=== PATIENT | female | born 1935 | race Caucasian/White ===

== ENCOUNTER 2022-05-16 17:51 | Inpatient (IN) | payer MEDICARE, MEDICAID ==
[~2022-05-16] VITALS: Ht 167.6 cm; Wt 83.5 kg
[~2022-05-16 17:51] MED LIST: ASPI-1497 PO; CILO100T PO; HYDR25TA PO; LEVO25TA7 PO; MECL-159 PO; PANT40TA51 PO; PIOG45TA5 PO; PREG150C PO
[2022-05-17] VITALS (7 sets, daily range): BP systolic 123–177; BP diastolic 45–83
[2022-05-17 01:48] LABS: BASOPHILS % 0.8 % (0.0-2.0); EOSINOPHILS % 3.6 % (0.0-5.0); LYMPHOCYTES % 24.8 % (20.0-50.0); MEAN CORPUSCULAR HEMOGLOBIN 20.6 pg (28.0-32.0); MEAN CORPUSCULAR VOLUME 69.2 fL (81.0-99.0); MEAN PLATELET VOLUME 9.3 fl (7.4-10.4); MONOCYTES % 10.4 % (2.0-8.0); NEUTROPHILS % 60.4 % (40.0-76.0); PLATELET 224 x1000/uL (130-400); RED BLOOD CELL COUNT 2.22 mill/uL (4.2-5.4); RED CELL DISTRIBUTION WIDTH 18.9 % (11.6-14.6)
[2022-05-17 01:53] LABS: HEMATOCRIT. 15.3 % (36.0-48.0); HEMOGLOBIN. 4.6 g/dL (12.0-16.0)
[2022-05-17 01:57] LABS: CHLORIDE 113 mEq/L (98-107)
[2022-05-17 01:59] LABS: INR 1.1; PARTIAL THROMBOPLASTIN TIME 25.8 sec (23.4-31.0)
[2022-05-17 02:08] LABS: PLATELET ESTIMATE NORMAL
[2022-05-17] MEDS ORDERED: CALCIUM CHLORIDE 1GM/10ML SYR IV ONE (02:45)
[2022-05-17 03:25] LABS: CLARITY URINE CLEAR (CLEAR); COLOR URINE YELLOW (YELLOW); KETONES URINE NEGATIVE (NEGATIVE); LEUKOCYTE ESTERASE URINE 2+ (NEGATIVE); NITRITE URINE NEGATIVE (NEGATIVE); OCCULT BLOOD URINE NEGATIVE (NEGATIVE); PROTEIN URINE NEGATIVE (NEGATIVE); SPECIFIC GRAVITY URINE 1.012 (1.005-1.030); UROBILINOGEN URINE 0.2 E.U./dL (0.2-1.0)
[2022-05-17] MEDS ORDERED: CEFTRIAXONE 1 G PREMIX 50 ML IV SCH (08:00)
[2022-05-17] MEDS ORDERED: ACETAMINOPHEN 325MG TABLET PO PRN ×2 (08:00)
[2022-05-17] MEDS ORDERED: HYDROCODONE/ACETAMINOPHEN 5/325MG TABLET PO PRN (08:00)
[2022-05-17] MEDS ORDERED: IPRATROPIUM/ALBUTEROL 0.5-3(2.5)MG/3ML NEB NEB PRN (08:00)
[2022-05-17] MEDS ORDERED: CLONIDINE 0.1MG TABLET PO PRN (08:00)
[2022-05-17] MEDS ORDERED: ONDANSETRON HCL 4MG/2ML INJ IV PRN (08:00)
[2022-05-17] MEDS ORDERED: GUAIFENESIN 200MG/10ML SUGAR FREE UDC PO PRN (08:00)
[2022-05-17] MEDS ORDERED: MAGNESIUM/ALUMINUM HYDROXIDE/SIMETHICONE 30ML UDC PO PRN (09:00)
[2022-05-17] MEDS ORDERED: HEPARIN 1000 UNITS/ML 10ML ONE (11:01)
[2022-05-17] MEDS ORDERED: NALOXONE HCL 0.4MG/ML VIAL IV PRN (12:00)
[2022-05-17 16:02] LABS: BASOPHILS % 0.8 % (0.0-2.0); EOSINOPHILS % 1.3 % (0.0-5.0); HEMATOCRIT. 24.3 % (36.0-48.0); HEMOGLOBIN. 7.4 g/dL (12.0-16.0); LYMPHOCYTES % 12.1 % (20.0-50.0); MEAN CORPUSCULAR HEMOGLOBIN 24.1 pg (28.0-32.0); MONOCYTES % 5.9 % (2.0-8.0); NEUTROPHILS % 79.9 % (40.0-76.0); PLATELET 169 x1000/uL (130-400); RED BLOOD CELL COUNT 3.07 mill/uL (4.2-5.4); RED CELL DISTRIBUTION WIDTH 23.3 % (11.6-14.6)
[2022-05-17] MEDS: CEFTRIAXONE 1,000 MG in DEXTROSE 5% WATER 50 ML IV SCH (16:05)
[2022-05-17 16:26] LABS: CHLORIDE 116 mEq/L (98-107)
[2022-05-17 16:38] LABS: FERRITIN 7 ng/mL (10-291)
[2022-05-17 16:44] LABS: PHOSPHORUS 4.9 mg/dL (2.5-4.9); T4 FREE 1.28 ng/dL (0.76-1.46); TOTAL IRON BINDING CAPACITY 464 ug/dL (250-450)
[2022-05-17 16:49] LABS: HEPATITIS B SURFACE ANTIGEN NEGATIVE
[2022-05-18] VITALS (15 sets, daily range): BP systolic 109–148; BP diastolic 42–68
[2022-05-18 06:24] LABS: BASOPHILS % 0.7 % (0.0-2.0); EOSINOPHILS % 3.9 % (0.0-5.0); LYMPHOCYTES % 20.9 % (20.0-50.0); MEAN CORPUSCULAR HEMOGLOBIN 23.1 pg (28.0-32.0); MEAN PLATELET VOLUME 9.6 fl (7.4-10.4); MONOCYTES % 11.3 % (2.0-8.0); NEUTROPHILS % 63.2 % (40.0-76.0); PLATELET 181 x1000/uL (130-400); RED BLOOD CELL COUNT 2.95 mill/uL (4.2-5.4); RED CELL DISTRIBUTION WIDTH 24.3 % (11.6-14.6)
[2022-05-18 06:41] LABS: MEAN CORPUSCULAR VOLUME 74.4 fL (81.0-99.0)
[2022-05-18 06:43] LABS: HEMATOCRIT. 21.9 % (36.0-48.0); HEMOGLOBIN. 6.8 g/dL (12.0-16.0)
[2022-05-18 06:50] LABS: PHOSPHORUS 2.9 mg/dL (2.5-4.9)
[2022-05-18] MEDS: AMLODIPINE 2.5MG TABLET PO SCH (08:40)
[2022-05-18] MEDS ORDERED: DEXTROSE 50% WATER 50ML SYRINGE IV PRN (09:30)
[2022-05-18] MEDS ORDERED: CEFTRIAXONE 1,000 MG in DEXTROSE 5% WATER 50 ML IV SCH (10:00)
[2022-05-18] MEDS: LEVOTHYROXINE SODIUM 25MCG TABLET PO SCH (10:06)
[2022-05-18] MEDS: BLOOD SUGAR DIAGNOSTIC STRIP TEST SCH ×3 (12:15→21:00)
[2022-05-18] MEDS: INSULIN LISPRO 100 UNITS/ML SUBCUT SCH ×3 (12:15→22:06)
[2022-05-18] MEDS: CEFTRIAXONE 1,000 MG in DEXTROSE 5% WATER 50 ML IV SCH (13:35)
[2022-05-18 14:12] LABS: FOLIC ACID (FOLATE) SERUM >20 ng/mL ng/mL (>5.38)
[2022-05-18] MEDS: GABAPENTIN 100MG CAPSULE PO SCH ×2 (14:34→22:07)
[2022-05-19] VITALS (12 sets, daily range): BP systolic 120–163; BP diastolic 52–70
[2022-05-19 06:42] LABS: BASOPHILS % 0.8 % (0.0-2.0); EOSINOPHILS % 4.7 % (0.0-5.0); HEMATOCRIT. 26.4 % (36.0-48.0); HEMOGLOBIN. 8.4 g/dL (12.0-16.0); LYMPHOCYTES % 22.8 % (20.0-50.0); MEAN CORPUSCULAR HEMOGLOBIN 24.1 pg (28.0-32.0); MEAN CORPUSCULAR VOLUME 75.8 fL (81.0-99.0); MEAN PLATELET VOLUME 9.5 fl (7.4-10.4); MONOCYTES % 11.2 % (2.0-8.0); NEUTROPHILS % 60.5 % (40.0-76.0); PLATELET 176 x1000/uL (130-400); RED BLOOD CELL COUNT 3.48 mill/uL (4.2-5.4)
[2022-05-19] MEDS: GABAPENTIN 100MG CAPSULE PO SCH ×3 (06:47→22:00)
[2022-05-19] MEDS: BLOOD SUGAR DIAGNOSTIC STRIP TEST SCH ×4 (06:47→22:16)
[2022-05-19] MEDS: IRON SUCROSE COMPLEX 100 MG/5 ML ML IV SCH ×2 (06:47→23:42)
[2022-05-19] MEDS: LEVOTHYROXINE SODIUM 25MCG TABLET PO SCH (06:51)
[2022-05-19] MEDS: INSULIN LISPRO 100 UNITS/ML SUBCUT SCH ×4 (07:30→21:00)
[2022-05-19] MEDS: AMLODIPINE 2.5MG TABLET PO SCH (09:06)
[2022-05-19] MEDS: FERROUS SULFATE 325MG TABLET PO SCH (09:07)
[2022-05-19] MEDS: FUROSEMIDE 40MG/4ML VIAL IVP SCH (11:55)
[2022-05-19] MEDS: CEFTRIAXONE 1,000 MG in DEXTROSE 5% WATER 50 ML IV SCH (12:46)
[2022-05-19] MEDS: ENOXAPARIN 30MG/0.3ML SYR SUBCUT SCH (18:46)
[2022-05-20] VITALS (13 sets, daily range): BP systolic 128–159; BP diastolic 45–88
[2022-05-20 06:18] LABS: BASOPHILS % 0.9 % (0.0-2.0); EOSINOPHILS % 4.1 % (0.0-5.0); HEMATOCRIT. 26.3 % (36.0-48.0); HEMOGLOBIN. 8.2 g/dL (12.0-16.0); MEAN CORPUSCULAR HEMOGLOBIN 23.7 pg (28.0-32.0); MEAN CORPUSCULAR VOLUME 76.4 fL (81.0-99.0); MEAN PLATELET VOLUME 9.7 fl (7.4-10.4); MONOCYTES % 13.1 % (2.0-8.0); NEUTROPHILS % 61.9 % (40.0-76.0); PLATELET 175 x1000/uL (130-400); RED BLOOD CELL COUNT 3.44 mill/uL (4.2-5.4); RED CELL DISTRIBUTION WIDTH 24.8 % (11.6-14.6)
[2022-05-20] MEDS: LEVOTHYROXINE SODIUM 25MCG TABLET PO SCH (07:05)
[2022-05-20] MEDS: GABAPENTIN 100MG CAPSULE PO SCH ×3 (07:05→22:15)
[2022-05-20] MEDS: BLOOD SUGAR DIAGNOSTIC STRIP TEST SCH ×4 (07:05→22:12)
[2022-05-20] MEDS: INSULIN LISPRO 100 UNITS/ML SUBCUT SCH ×4 (08:00→22:13)
[2022-05-20] MEDS: AMLODIPINE 2.5MG TABLET PO SCH (09:00)
[2022-05-20] MEDS ORDERED: MAGNESIUM HYDROXIDE 400MG/5ML 30ML UDC PO PRN (11:30)
[2022-05-20] MEDS: SENNOSIDES/DOCUSATE SOD 8.6/50MG TABLET PO SCH ×2 (12:00→17:41)
[2022-05-20] MEDS: FUROSEMIDE 40MG/4ML VIAL IVP SCH (13:16)
[2022-05-20] MEDS: POLYETHYLENE GLYCOL 3350 (17GM) 1 DOSE PACK PO SCH (13:27)
[2022-05-20] MEDS: CEFTRIAXONE 1,000 MG in DEXTROSE 5% WATER 50 ML IV SCH (14:42)
[2022-05-20] MEDS: ENOXAPARIN 30MG/0.3ML SYR SUBCUT SCH (17:36)
[2022-05-21] VITALS (16 sets, daily range): BP systolic 128–162; BP diastolic 44–74
[2022-05-21] MEDS: IRON SUCROSE COMPLEX 100 MG/5 ML ML IV SCH ×2 (00:14→21:28)
[2022-05-21 06:36] LABS: BASOPHILS % 0.6 % (0.0-2.0); EOSINOPHILS % 4.8 % (0.0-5.0); HEMATOCRIT. 26.4 % (36.0-48.0); HEMOGLOBIN. 8.5 g/dL (12.0-16.0); LYMPHOCYTES % 17.7 % (20.0-50.0); MEAN CORPUSCULAR HEMOGLOBIN 24.4 pg (28.0-32.0); MEAN CORPUSCULAR VOLUME 75.8 fL (81.0-99.0); MEAN PLATELET VOLUME 9.7 fl (7.4-10.4); MONOCYTES % 10.1 % (2.0-8.0); NEUTROPHILS % 66.8 % (40.0-76.0); PLATELET 170 x1000/uL (130-400); RED BLOOD CELL COUNT 3.48 mill/uL (4.2-5.4); RED CELL DISTRIBUTION WIDTH 24.9 % (11.6-14.6)
[2022-05-21] MEDS: GABAPENTIN 100MG CAPSULE PO SCH ×3 (07:01→21:28)
[2022-05-21] MEDS: LEVOTHYROXINE SODIUM 25MCG TABLET PO SCH (07:01)
[2022-05-21] MEDS: BLOOD SUGAR DIAGNOSTIC STRIP TEST SCH ×4 (07:01→21:27)
[2022-05-21 07:51] LABS: PHOSPHORUS 3.7 mg/dL (2.5-4.9)
[2022-05-21] MEDS: INSULIN LISPRO 100 UNITS/ML SUBCUT SCH ×4 (08:00→21:00)
[2022-05-21] MEDS: SENNOSIDES/DOCUSATE SOD 8.6/50MG TABLET PO SCH ×2 (08:19→17:55)
[2022-05-21] MEDS: FERROUS SULFATE 325MG TABLET PO SCH (08:19)
[2022-05-21] MEDS: AMLODIPINE 2.5MG TABLET PO SCH (08:20)
[2022-05-21] MEDS: POLYETHYLENE GLYCOL 3350 (17GM) 1 DOSE PACK PO SCH (08:20)
[2022-05-21] MEDS: FUROSEMIDE 40MG/4ML VIAL IVP SCH (08:20)
[2022-05-21 09:07] LABS: ALBUMIN 3.3 g/dL (2.9-4.4); ALPHA-1-GLOBULIN 0.3 g/dL (0.0-0.4); ALPHA-2-GLOBULIN 0.9 g/dL (0.4-1.0); BETA GLOBULIN 1.1 g/dL (0.7-1.3); GAMMA GLOBULINS 1.1 g/dL (0.4-1.8); GLOBULIN TOTAL 3.4 g/dL (2.2-3.9); M-SPIKE Not Observed g/dL (Not Observed); TOTAL PROTEIN SERUM 6.7 g/dL (6.0-8.5)
[2022-05-21] MEDS ORDERED: SORBITOL 70% SOLN 30ML PO PRN (10:00)
[2022-05-21] MEDS: CEFTRIAXONE 1,000 MG in DEXTROSE 5% WATER 50 ML IV SCH (12:43)
[2022-05-21] MEDS: ENOXAPARIN 30MG/0.3ML SYR SUBCUT SCH (17:55)
[2022-05-21 18:46] LABS: VITAMIN B12 SERUM > 2000 pg/mL (211-911)
[2022-05-22] VITALS (20 sets, daily range): BP systolic 136–156; BP diastolic 28–71
[2022-05-22 07:07] LABS: BASOPHILS % 0.6 % (0.0-2.0); HEMATOCRIT. 28.5 % (36.0-48.0); HEMOGLOBIN. 8.8 g/dL (12.0-16.0); MEAN CORPUSCULAR VOLUME 77.2 fL (81.0-99.0); MEAN PLATELET VOLUME 9.6 fl (7.4-10.4); MONOCYTES % 9.3 % (2.0-8.0); NEUTROPHILS % 67.1 % (40.0-76.0); PLATELET 157 x1000/uL (130-400); RED BLOOD CELL COUNT 3.69 mill/uL (4.2-5.4); RED CELL DISTRIBUTION WIDTH 25.8 % (11.6-14.6)
[2022-05-22] MEDS: INSULIN LISPRO 100 UNITS/ML SUBCUT SCH ×4 (07:14→21:00)
[2022-05-22] MEDS: BLOOD SUGAR DIAGNOSTIC STRIP TEST SCH ×4 (07:14→21:25)
[2022-05-22] MEDS: GABAPENTIN 100MG CAPSULE PO SCH ×3 (07:16→21:26)
[2022-05-22] MEDS: LEVOTHYROXINE SODIUM 25MCG TABLET PO SCH (07:16)
[2022-05-22] MEDS: SENNOSIDES/DOCUSATE SOD 8.6/50MG TABLET PO SCH ×2 (09:26→16:56)
[2022-05-22] MEDS: FUROSEMIDE 40MG/4ML VIAL IVP SCH (09:26)
[2022-05-22] MEDS: AMLODIPINE 2.5MG TABLET PO SCH (09:27)
[2022-05-22] MEDS: POLYETHYLENE GLYCOL 3350 (17GM) 1 DOSE PACK PO SCH (09:27)
[2022-05-22] MEDS: CEFTRIAXONE 1,000 MG in DEXTROSE 5% WATER 50 ML IV SCH (12:48)
[2022-05-22 17:11] LABS: ANA IFA Negative (.)
[2022-05-22] MEDS: ENOXAPARIN 30MG/0.3ML SYR SUBCUT SCH (17:59)
[2022-05-22] MEDS: IRON SUCROSE COMPLEX 100 MG/5 ML ML IV SCH (21:26)
[2022-05-23] VITALS (12 sets, daily range): BP systolic 125–145; BP diastolic 52–81
[2022-05-23 06:35] LABS: BASOPHILS % 0.8 % (0.0-2.0); EOSINOPHILS % 6.2 % (0.0-5.0); HEMATOCRIT. 28.1 % (36.0-48.0); HEMOGLOBIN. 9.1 g/dL (12.0-16.0); MEAN CORPUSCULAR HEMOGLOBIN 24.6 pg (28.0-32.0); MEAN CORPUSCULAR VOLUME 76.3 fL (81.0-99.0); MEAN PLATELET VOLUME 9.6 fl (7.4-10.4); MONOCYTES % 9.2 % (2.0-8.0); NEUTROPHILS % 63.8 % (40.0-76.0); PLATELET 166 x1000/uL (130-400); RED BLOOD CELL COUNT 3.68 mill/uL (4.2-5.4)
[2022-05-23] MEDS: GABAPENTIN 100MG CAPSULE PO SCH (07:07)
[2022-05-23] MEDS: LEVOTHYROXINE SODIUM 25MCG TABLET PO SCH (07:08)
[2022-05-23] MEDS: BLOOD SUGAR DIAGNOSTIC STRIP TEST SCH ×2 (07:08→12:30)
[2022-05-23] MEDS: INSULIN LISPRO 100 UNITS/ML SUBCUT SCH ×2 (08:14→13:00)
[2022-05-23] MEDS: POLYETHYLENE GLYCOL 3350 (17GM) 1 DOSE PACK PO SCH (08:50)
[2022-05-23] MEDS: FERROUS SULFATE 325MG TABLET PO SCH (08:50)
[2022-05-23] MEDS: SENNOSIDES/DOCUSATE SOD 8.6/50MG TABLET PO SCH (08:50)
[2022-05-23] MEDS: AMLODIPINE 2.5MG TABLET PO SCH (08:51)
[2022-05-23] MEDS ORDERED: FERR-63 PO (12:48)
[2022-05-23] MEDS ORDERED: POLY17PO3 PO (12:48)
[2022-05-23] MEDS ORDERED: SENN1TAB35 PO (12:48)
== END 2022-05-23 14:05 | disposition home health service (06) | DRG 683 ==
LOC: ER 17:51 → EDBEDREQTM 05-17 03:04 → EDBEDREQ 05-17 03:04 → SUPCPDRO 05-17 07:56 → 7EST 05-17 11:07 → 5EST 05-17 11:52
PROVIDERS: ADMIT Internal Medicine; ATTEND Internal Medicine
PROC: 02HV33Z Insertion of Infusion Device into Superior Vena Cava, Percutaneous Approach (ICD-10-PCS; principal; 2022-05-17)
PROC: 30233N1 Transfusion of Nonautologous Red Blood Cells into Peripheral Vein, Percutaneous Approach (ICD-10-PCS; 2022-05-17)
PROC: B548ZZA Ultrasonography of Superior Vena Cava, Guidance (ICD-10-PCS; 2022-05-17)
PROC: 5A1D70Z Performance of Urinary Filtration, Intermittent, Less than 6 Hours Per Day (ICD-10-PCS; 2022-05-17)
PROC: 5A1D70Z Performance of Urinary Filtration, Intermittent, Less than 6 Hours Per Day (ICD-10-PCS; 2022-05-18)
PROC: 5A1D70Z Performance of Urinary Filtration, Intermittent, Less than 6 Hours Per Day (ICD-10-PCS; 2022-05-20)
DX: N17.9 Acute kidney failure, unspecified (principal); E87.2 Acidosis; I13.0 Hypertensive heart and chronic kidney disease with heart failure and stage 1 through stage 4 chronic kidney disease, or unspecified chronic kidney disease; N39.0 Urinary tract infection, site not specified; N18.4 Chronic kidney disease, stage 4 (severe); Z66 Do not resuscitate; D50.9 Iron deficiency anemia, unspecified; E03.9 Hypothyroidism, unspecified; D63.1 Anemia in chronic kidney disease; Z20.822 Contact with and (suspected) exposure to COVID-19; E11.22 Type 2 diabetes mellitus with diabetic chronic kidney disease; E78.00 Pure hypercholesterolemia, unspecified; E87.5 Hyperkalemia; I50.9 Heart failure, unspecified; E78.5 Hyperlipidemia, unspecified; K21.9 Gastro-esophageal reflux disease without esophagitis; B96.1 Klebsiella pneumoniae [K. pneumoniae] as the cause of diseases classified elsewhere; M79.89 Other specified soft tissue disorders; Z79.84 Long term (current) use of oral hypoglycemic drugs; Z79.890 Hormone replacement therapy; Z86.718 Personal history of other venous thrombosis and embolism; Z99.2 Dependence on renal dialysis; Z79.899 Other long term (current) drug therapy
CPT/HCPCS: 36415; 36556; 71045; 76700; 77001; 80048; 80053; 81003; 82270; 82570; 82607; 82728; 82746; 82962; 83010; 83036; 83540; 83550; 83605; 83735; 83880; 83970; 84100; 84155; 84156; 84165; 84300; 84439; 84443; 84484; 84550; 85025; 85044; 86160; 86162; 86256; 86705; 86706; 86709; 86803; 86850; 86900; 86920; 87077; 87186; 87340; 87426; 93005; 93306; 93970; 97162; 97166; 99285; C1752; J0696; J1644; J1650; J1815; J1940; J2405; J3490; J7060; P9016